=== PATIENT | male | born 1965 | race Caucasian/White ===

== ENCOUNTER 2017-03-29 12:42 | Emergency (ER) | payer BC ==
[~2017-03-29] VITALS: Ht 172.7 cm; Wt 102.0 kg
[~2017-03-29 12:42] MED LIST: CETI1SYR4 PO; FLUT16SP12 NS; PRED-214 PO; SULF1TAB38 PO
[2017-03-29 12:45] VITALS: Ht 172.7 cm; Wt 102.0 kg
--- OUTSIDE RECORDS SUMMARY | 2017-03-29 12:47 | XMS REPORT | Referral Summary ---
Author Author [facility], [facility] Organization [facility], [facility] Address Unknown Phone Unavailable Care Team Providers Care Associate Artistic Director Name Role Phone Leonie Del Rosario Primary Care Physician [phone] Encounter VC Date(s): 06/21/16 - 06/21/16 [facility], [address] [place], [place] [address] Discharge Diagnosis: DEACON on CPAP Discharge Disposition: 01-Home or Self Care Attending Physician: Erik Bahena MD Admitting Physician: Erik Bahena MD Vital Signs Most recent to 1 oldest [Reference Range]: Peripheral Pulse 68 bpm Rate [60-100 bpm] (06/21/16 2:34 PM) Blood Pressure 140/80 mmHg [90-140/60-90 mmHg] (06/21/16 2:34 PM) SpO2 94 % (06/21/16 2:34 PM) Problem List Condition Effective Dates Status Health Status Informant Complete tear of Active right rotator cuff(Confirmed) Primary Active osteoarthritis of right shoulder(Confirmed) Obesity(Confirmed) Active patient Obstructive sleep Active apnea, adult(Confirmed) Biceps tendon Active tear(Confirmed) Allergies, Adverse Reactions, Alerts No Known Medication Allergies Medications acyclovir 1 tablet, Oral, BID, 0 Refill(s) Start Date: 12/05/15 Status: Ordered Aspirin Low Dose 81 mg, Oral, Daily, 0 Refill(s) Start Date: 02/23/16 Status: Ordered Flonase 50 mcg/inh nasal spray 1 sprays, Nasal, Daily, # 16 g, 0 Refill(s) Start Date: 12/16/14 Status: Ordered Prevacid 15 mg, Oral, Daily, 0 Refill(s) Start Date: 02/23/16 Status: Ordered ZyrTEC 5 mg, Oral, Daily, 0 Refill(s) Start Date: 02/23/16 Status: Ordered Results No data available for this section Immunizations No data available for this section Procedures Procedure Date Related Diagnosis Body Site Catheterization Left Heart with Coronary 02/23/16 Angiography (Right, Wrist)1 lt shoulder surgery Surgery2 Tonsillectomy and adenoidectomy Vasectomy 1auto-populated from documented surgical case 2Left shoulder Social History Social History Type Response Smoking Status Former smoker; Type: Cigarettes; Tobacco use per day: More than 1 pack; Number of years: 15 Assessment and Plan Extracted from: Title: Ambulatory Patient Education Author: Erik Bahena MD Date: 06/21/16 ENT Sleep Apnea Sleep apnea is a sleep disorder characterized by abnormal pauses in breathing while you sleep. When your breathing pauses, the level of oxygen in your blood decreases. This causes you to move out of deep sleep and into light sleep. As a result, your quality of sleep is poor, and the system that carries your blood throughout your body (cardiovascular system) experiences stress. If sleep apnea remains untreated, the following conditions can develop: High blood pressure (hypertension). Coronary artery disease. Inability to achieve or maintain an erection (impotence). Impairment of your thought process (cognitive dysfunction). There are three types of sleep apnea: 1.Obstructive sleep apneaPauses in breathing during sleep because of a blocked airway. 2.Central sleep apneaPauses in breathing during sleep because the area of the brain that controls your breathing does not send the correct signals to the muscles that control breathing. 3. Mixed sleep apneaA combination of both obstructive and central sleep apnea. RISK FACTORS The following risk factors can increase your risk of developing sleep apnea: Being overweight. Smoking. Having narrow passages in your nose and throat. Being of older age. Being male. Alcohol use. Sedative and tranquilizer use. Ethnicity. Among individuals younger than 35 years, Americans are at increased risk of sleep apnea. SYMPTOMS Difficulty staying asleep. Daytime sleepiness and fatigue. Loss of energy. Irritability. Loud, heavy snoring. Morning headaches. Trouble concentrating. Forgetfulness. Decreased interest in sex. Unexplained sleepiness. DIAGNOSIS In order to diagnose sleep apnea, your caregiver will perform a physical examination. A sleep study done in the comfort of your own home may be appropriate if you are otherwise healthy. Your caregiver may also recommend that you spend the night in a sleep lab. In the sleep lab, several monitors record information about your heart, lungs, and brain while you sleep. Your leg and arm movements and blood oxygen level are also recorded. TREATMENT The following actions may help to resolve mild sleep apnea: Sleeping on your side. Using a decongestant if you have nasal congestion. Avoiding the use of depressants, including alcohol, sedatives, and narcotics. Losing weight and modifying your diet if you are overweight. There also are devices and treatments to help open your airway: Oral appliances. These are custom-made mouthpieces that shift your lower jaw forward and slightly open your bite. This opens your airway. Devices that create positive airway pressure. This positive pressure "splints" your airway open to help you breathe better during sleep. The following devices create positive airway pressure: Continuous positive airway pressure (CPAP) device. The CPAP device creates a continuous level of air pressure with an air pump. The air is delivered to your airway through a mask while you sleep. This continuous pressure keeps your airway open. Nasal expiratory positive airway pressure (EPAP) device. The EPAP device creates positive air pressure as you exhale. The device consists of single-use valves, which are inserted into each nostril and held in place by adhesive. The valves create very little resistance when you inhale but create much more resistance when you exhale. That increased resistance creates the positive airway pressure. This positive pressure while you exhale keeps your airway open , making it easier to breath when you inhale again. Bilevel positive airway pressure (BPAP) device. The BPAP device is used mainly in patients with central sleep apnea. This device is similar to the CPAP device because it also uses an air pump to deliver continuous air pressure through a mask. However, with the BPAP machine, the pressure is set at two different levels. The pressure when you exhale is lower than the pressure when you inhale. Surgery. Typically, surgery is only done if you cannot comply with less invasive treatments or if the less invasive treatments do not improve your condition. Surgery involves removing excess tissue in your airway to create a wider passage way. This information is not intended to replace advice given to you by your health care provider. Make sure you discuss any questions you have with your health care provider. Document Released: 10/24/2003 Document Revised: 11/24/2015 Document Reviewed: [facility] Patient Information 2016 [facility], [facility]. Sleep Apnea Sleep apnea is a sleep disorder characterized by abnormal pauses in breathing while you sleep. When your breathing pauses, the level of oxygen in your blood decreases. This causes you to move out of deep sleep and into light sleep. As a result, your quality of sleep is poor, and the system that carries your blood throughout your body (cardiovascular system) experiences stress. If sleep apnea remains untreated, the following conditions can develop: High blood pressure (hypertension). Coronary artery disease. Inability to achieve or maintain an erection (impotence). Impairment of your thought process (cognitive dysfunction). There are three types of sleep apnea: 1.Obstructive sleep apneaPauses in breathing during sleep because of a blocked airway. 2.Central sleep apneaPauses in breathing during sleep because the area of the brain that controls your breathing does not send the correct signals to the muscles that control breathing. 3. Mixed sleep apneaA combination of both obstructive and central sleep apnea. RISK FACTORS The following risk factors can increase your risk of developing sleep apnea: Being overweight. Smoking. Having narrow passages in your nose and throat. Being of older age. Being male. Alcohol use. Sedative and tranquilizer use. Ethnicity. Among individuals younger than 35 years, Americans are at increased risk of sleep apnea. SYMPTOMS Difficulty staying asleep. Daytime sleepiness and fatigue. Loss of energy. Irritability. Loud, heavy snoring. Morning headaches. Trouble concentrating. Forgetfulness. Decreased interest in sex. Unexplained sleepiness. DIAGNOSIS In order to diagnose sleep apnea, your caregiver will perform a physical examination. A sleep study done in the comfort of your own home may be appropriate if you are otherwise healthy. Your caregiver may also recommend that you spend the night in a sleep lab. In the sleep lab, several monitors record information about your heart, lungs, and brain while you sleep. Your leg and arm movements and blood oxygen level are also recorded. TREATMENT The following actions may help to resolve mild sleep apnea: Sleeping on your side. Using a decongestant if you have nasal congestion. Avoiding the use of depressants, including alcohol, sedatives, and narcotics. Losing weight and modifying your diet if you are overweight. There also are devices and treatments to help open your airway: Oral appliances. These are custom-made mouthpieces that shift your lower jaw forward and slightly open your bite. This opens your airway. Devices that create positive airway pressure. This positive pressure "splints" your airway open to help you breathe better during sleep. The following devices create positive airway pressure: Continuous positive airway pressure (CPAP) device. The CPAP device creates a continuous level of air pressure with an air pump. The air is delivered to your airway through a mask while you sleep. This continuous pressure keeps your airway open. Nasal expiratory positive airway pressure (EPAP) device. The EPAP device creates positive air pressure as you exhale. The device consists of single-use valves, which are inserted into each nostril and held in place by adhesive. The valves create very little resistance when you inhale but create much more resistance when you exhale. That increased resistance creates the positive airway pressure. This positive pressure while you exhale keeps your airway open , making it easier to breath when you inhale again. Bilevel positive airway pressure (BPAP) device. The BPAP device is used mainly in patients with central sleep apnea. This device is similar to the CPAP device because it also uses an air pump to deliver continuous air pressure through a mask. However, with the BPAP machine, the pressure is set at two different levels. The pressure when you exhale is lower than the pressure when you inhale. Surgery. Typically, surgery is only done if you cannot comply with less invasive treatments or if the less invasive treatments do not improve your condition. Surgery involves removing excess tissue in your airway to create a wider passage way. This information is not intended to replace advice given to you by your health care provider. Make sure you discuss any questions you have with your health care provider. Document Released: 10/24/2003 Document Revised: 11/24/2015 Document Reviewed: [facility] Patient Information 2016 [place], [facility]. No follow up information was provided.
--- OUTSIDE RECORDS SUMMARY | 2017-03-29 12:47 | XMS REPORT | Referral Summary ---
Author Author [facility], [facility] Organization [facility] Address Unknown Phone Unavailable Care Team Providers Care Warehouse Order Picker Name Role Phone Leonie Del Rosario Primary Care Physician [phone] Encounter VC Date(s): 01/05/16 - 01/05/16 [facility], [facility] [address], [place] [address] Discharge Diagnosis: Obstructive sleep apnea, adult Discharge Disposition: 01-Home or Self Care Attending Physician: Erik Bahena MD Admitting Physician: Erik Bahena MD Vital Signs Most recent to 1 oldest [Reference Range]: Peripheral Pulse 70 bpm Rate [60-100 bpm] (01/05/16 10:55 AM) Blood Pressure 150/84 mmHg [90-140/60-90 mmHg] *HI* (01/05/16 10:55 AM) SpO2 96 % (01/05/16 10:55 AM) Problem List Condition Effective Dates Status Health Status Informant Complete tear of Active right rotator cuff(Confirmed) Primary Active osteoarthritis of right shoulder(Confirmed) Obesity(Confirmed) Active patient Obstructive sleep Active apnea, adult(Confirmed) Biceps tendon Active tear(Confirmed) Allergies, Adverse Reactions, Alerts No Known Medication Allergies Medications acyclovir 0 Refill(s) Start Date: 12/05/15 Status: Ordered Flonase 50 mcg/inh nasal spray 1 sprays, Nasal, Daily, # 16 g, 0 Refill(s) Start Date: 12/16/14 Status: Ordered Results No data available for this section Immunizations No data available for this section Procedures Procedure Date Related Diagnosis Body Site Surgery1 1Left shoulder Social History Social History Type Response Smoking Status Former smoker; Type: Cigarettes; Tobacco use per day: More than 1 pack; Number of years: 15 Assessment and Plan No data available for this section
--- OUTSIDE RECORDS SUMMARY | 2017-03-29 12:47 | XMS REPORT | Referral Summary ---
Author Author [facility], [facility] Organization [facility], [facility] Address Unknown Phone Unavailable Care Team Providers Care Rim Roller Setter Name Role Phone Leonie Del Rosario Primary Care Physician [phone] Encounter VC Date(s): 12/14/15 - 12/14/15 [facility], [address], [place] [address] Discharge Disposition: 01-Home or Self Care Attending Physician: Anthony Snowden MD Admitting Physician: Anthony Snowden MD Referring Physician: Anthony Snowden MD Vital Signs No data available for this section Problem List Condition Effective Dates Status Health [...] 15 Assessment and Plan Extracted from: Title: CPAP SUPPLY Author: Shaila Johnson LIABILITY ANALYST Date: 12/13/15 cindy Tovar
--- OUTSIDE RECORDS SUMMARY | 2017-03-29 12:47 | XMS REPORT | Referral Summary ---
Author Author [facility], [facility] Organization [facility], [facility] Address Unknown Phone Unavailable Care Team Providers Care Ball Assembler Name Role Phone Leonie Del Rosario Primary Care Physician [phone] Encounter Date(s): 02/06/16 - 02/06/16 [facility], [facility] [address] [place] [address]- [place] Discharge Disposition: 01-Home or Self Care Attending Physician: Erik Bahena MD Admitting Physician: Erik Bahena MD Vital Signs No data available for [...] Assessment and Plan Extracted from: Title: CPAP MASK Author: Shaila Johnson ROOFING LABORER Date: 02/06/16 Mr Asencio returned the loan analia view mask on 02/05/16.
--- OUTSIDE RECORDS SUMMARY | 2017-03-29 12:47 | XMS REPORT | Referral Summary ---
Author Organization Unknown Address Unknown Phone Unavailable Care Team Providers Care Wrapper Opener Name Role Phone Leonie Del Rosario Primary Care Physician [phone] Encounter VC Date(s): 01/03/15 - 01/03/15 [facility], [facility] [address] [facility] [address] [place], [place] [address] Discharge Disposition: Home or Self Care Attending Physician: Drew Del Rosario MD Admitting Physician: Drew Del Rosario MD Vital Signs No data available for this section Problem List Condition Effective Dates Status Health Status Informant Obesity(Confirmed) Active patient Obstructive sleep Active apnea, adult(Confirmed) Allergies, Adverse Reactions, Alerts No Known Medication Allergies Medications Flonase 50 mcg/inh nasal spray 1 sprays, Nasal, Daily, # 16 g, 0 Refill(s) Start Date: 12/16/14 Status: Ordered Results No data available for this section Immunizations No data available for this section Procedures No data available for this section Social History Social History Type Response Smoking Status Former smoker; Type: Cigarettes; Tobacco use per day: More than 1 pack; Number of years: 15 Assessment and Plan Extracted from: Title: CPAP simplus:Scindy, Author: Shaila Johnson WALL INSULATION SPRAYER Date: [employer]
--- OUTSIDE RECORDS SUMMARY | 2017-03-29 12:47 | XMS REPORT | Referral Summary ---
Author Organization Unknown Address Unknown Phone Unavailable Care Team Providers Care Fish Hatchery Manager Name Role Phone Leonie Del Rosario Primary Care Physician [phone] Encounter VC Date(s): 12/16/14 - 12/16/14 [facility], [facility] [address], [place] [address] Discharge Disposition: Home or Self Care Attending Physician: Drew Del Rosario MD Vital Signs [...] Assessment and Plan Extracted from: Title: CPAP adjust pressure to 8cm Author: Shaila Johnson PURCHASING AND FISCAL CLERK Date: 12/16/[address] Snowden pressure change
--- OUTSIDE RECORDS SUMMARY | 2017-03-29 12:47 | XMS REPORT | Referral Summary ---
Author Organization Unknown Address Unknown Phone Unavailable Care Team Providers Care Post Anesthesia Nurse Name Role Phone Leonie Del Rosario Primary Care Physician [phone] Encounter VC Date(s): 12/16/14 - 12/16/14 [facility], [facility] [address] [place], [place] [address] [[email or web address]] Discharge Diagnosis: Obstructive sleep apnea, adult Discharge Disposition: Home or Self Care Attending Physician: Anthony Snowden MD Admitting Physician: Anthony Snowden MD Vital Signs Most recent to 1 oldest [Reference Range]: Peripheral Pulse 71 bpm Rate [60-100 bpm] (12/16/14 2:20 PM) Blood Pressure 124/60 mmHg [90-140/60-90 mmHg] (12/16/14 2:20 PM) Most recent to 1 oldest [Reference Range]: SpO2 94 % (12/16/14 2:20 PM) Problem List Condition Effective Dates Status [...] 15 Assessment and Plan Extracted from: Title: Office Visit Note Author: Anthony Snowden MD Date: 12/16/14 Assessment/Plan Obstructive sleep apnea, adult Assessment: The patient is complying with treatment and benefiting. A little higher pressure may be better. Plan: Increase pressure to 8 cm. Return on an as-needed basis. Again we are looking into the billing issues for him. He was given a prescription so he can get supplies elsewhere if he wishes.
--- OUTSIDE RECORDS SUMMARY | 2017-03-29 12:47 | XMS REPORT | Referral Summary ---
Author Author [facility], [facility] Organization [facility], [facility] Address Unknown Phone Unavailable Care Team Providers Care Taxicab Driver Name Role Phone Leonie Del Rosario Primary Care Physician [phone] Encounter VC Date(s): 07/19/16 - 07/19/16 [facility], [facility] [address], [place] [address] Discharge Disposition: 01-Home or Self [...]
--- OUTSIDE RECORDS SUMMARY | 2017-03-29 12:47 | XMS REPORT | Referral Summary ---
Author Author [facility] Organization [facility] Address Unknown Phone Unavailable Care Team Providers Care Car Mechanic Name Role Phone Leonie Del Rosario Primary Care Physician [phone] Encounter VC Date(s): 12/05/15 - 12/05/15 [facility] [address] [place], [place] [address] Discharge Disposition: 01-Home or Self Care Attending Physician: Erik Feliz MD Admitting Physician: Erik Feliz MD Referring Physician: Drew Del Rosario MD Vital Signs Most recent to 1 oldest [Reference Range]: Respiratory Rate 18 br/min [14-20 br/min] (12/05/15 4:00 PM) Problem List Condition Effective Dates Status [...]
--- OUTSIDE RECORDS SUMMARY | 2017-03-29 12:47 | XMS REPORT | Referral Summary ---
Author Author [facility], [facility] Organization [facility], [facility] Address Unknown Phone Unavailable Care Team Providers Care Director Of Clinical Applications Name Role Phone Leonie Del Rosario Primary Care Physician [phone] Encounter VC Date(s): 09/10/16 - 09/10/16 [facility] [place], [address] [place], [place] [address] Discharge Disposition: 01-Home or Self Care Attending Physician: Erik Bahena MD Vital Signs No [...]
--- OUTSIDE RECORDS SUMMARY | 2017-03-29 12:47 | XMS REPORT | Referral Summary ---
Author Organization Unknown Address Unknown Phone Unavailable Care Team Providers Care Manufacturing Software Engineer Name Role Phone Leonie Del Rosario Primary Care Physician [phone] Encounter VC [facility] [id number] Date(s): 03/03/15 - 03/03/15 [facility], [facility] [address] [facility] [address] [place], [place] [address] Discharge Disposition: Home or Self Care [...]
--- OUTSIDE RECORDS SUMMARY | 2017-03-29 12:47 | XMS REPORT | Referral Summary ---
Author Author [facility], [facility] Organization [facility], [facility] Address Unknown Phone Unavailable Care Team Providers Care Conveyor Weigher Operator Name Role Phone Leonie Del Rosario Primary Care Physician [phone] Encounter VC Date(s): 06/21/16 - 06/21/16 [facility], [facility] [address], [place] [address] Discharge Disposition: 01-Home or Self [...] Assessment and Plan Extracted from: Title: CPAP SUPPLY/ PRESSURE CHANGE Author: Shaila Johnson COUNTER CLERK [employer] Date : 06/21/16 S10 filters Pressure changed to 11cm per Dr Bahena
--- OUTSIDE RECORDS SUMMARY | 2017-03-29 12:47 | XMS REPORT | Referral Summary ---
Author Author [facility], [facility] Organization [facility] Address Unknown Phone Unavailable Care Team Providers Care Assistant Executive Housekeeper Name Role Phone Leonie Del Rosario Primary Care Physician [phone] Encounter VC Date(s): 09/18/15 - 09/18/15 [facility], [facility] [address], [place] [address] Discharge Disposition: 01-Home or Self Care Attending Physician: Anthony Snowden MD Referring Physician: Anthony [...] Assessment and Plan Extracted from: Title: CPAP SUPPLIES Author: [place]ia Bolivar SCREW MACHINE HAND Date: 09/18/15 small simplus seal, s9 filters.
--- OUTSIDE RECORDS SUMMARY | 2017-03-29 12:47 | XMS REPORT | Continuity of Care Document ---
Author Author [facility] Organization [facility] Address Unknown Phone Unavailable Allergies Active Description Code Type Severity Reaction Onset Reported/Identified Relationship to Patient Clinical Status Yes No Known Medication Allergies NKMA N/A N/A 09/01/2014 Yes No Known Medication Allergies NKMA N/A N/A 09/01/2014 Medications Medication Packaging Start Date Stop Date Route Dosage Sig fluticasone nasal(Flonase 50 mcg/inh nasal spray) 1 sprays 12/16/2014 Nasal 1 sprays, Nasal, Daily, 16 g acyclovir(acyclovir) 12/05/2015 Oral 1 tablet, Oral, BID, 0 Refill(s) triamcinolone(triamcinolone acetonide 40 mg/mL injectable suspension) 201512/09/2015 IntraARTICULAR 2 mL 2 mL, IntraARTICULAR, Once Sodium Chloride 0.9%(sodium chloride 0.9% 1,000 mL) 1,000 mL 02/23/2016 02/23/2016 IV 75 mL/hr, IV methylPREDNISolone(Solu-MEDROL) 2 mL 02/23/2016 02/23/2016 IV Push 125 mg 125 mg=2 mL, IV Push, Once, PRN: Other (See Comment) diphenhydrAMINE(Benadryl) 1 mL 02/23/2016 02/23/2016 IV Push 50 mg 50 mg=1 mL, IV Push, Once, PRN: Other (See Comment) cetirizine(ZyrTEC) 02/23/2016 Oral 5 mg 5 mg, Oral, Daily, 0 Refill(s) lansoprazole(Prevacid) 02/23/2016 Oral 15 mg 15 mg, Oral, Daily, 0 Refill(s) Problems Date Dx Coded Attending Type Code Diagnosis Diagnosed By 02/28/2016 Tahir Muhammad MD 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 Visit Date/Time Discharge Status Pt. Type Provider Facility Loc./Unit Complaint [id number] 09/10/2016 15:36:00 2015 23:59:00 DIS Outpatient Erik Bahena [facility] Sleep W supplies [id number] 09/10/2016 15:30:00 2015 23:59:00 DIS Outpatient [facility] Sleep W CPAP SUPPLIES [id number] 09/10/2016 14:49:00 2015 23:59:00 DIS Outpatient Erik Bahena [facility] Sleep W 6 week claudia cpap [id number] 07/19/2016 09:04:00 2015 23:59:00 DIS Outpatient Erik Bahena [facility] Sleep W [address] Bahena for results [id number] 06/21/2016 15:04:00 2015 23:59:00 DIS Outpatient Erik Bahena [facility] Sleep W S10 filters/ pressure change to 11cm pr DrJosef [id number] 06/21/2016 14:26:00 2015 23:59:00 DIS Outpatient Erik Bahena [facility] Sleep W HAVING TROUBLE SLEEPING HAS A CPAP [id number] 02/06/2016 08:04:00 2015 23:59:00 DIS Outpatient Erik Bahena [facility] Sleep W return analia view mask [id number] 01/05/2016 12:08:00 2015 23:59:00 DIS Outpatient Erik Bahena [facility] Sleep W mask help [id number] 01/05/2016 10:44:00 2015 23:59:00 DIS Outpatient Erik Bahena [facility] Sleep W PAST PT CLAUDIA CPAP [id number] 12/14/2015 10:37:00 2015 23:59:00 DIS Outpatient Anthony Snowden [facility] Sleep W small simplus cushion/ headgear [id number] 12/13/2015 14:39:00 2015 23:59:00 DIS Outpatient [facility] Sleep W CPAP [id number] 09/18/2015 14:08:00 2014 23:59:00 DIS Outpatient [facility] Sleep W CPAP SUPPLIES [id number] 09/18/2015 09:34:00 2014 23:59:00 DIS Outpatient Anthony Snowden [facility] Sleep W small simplus cushion / s9 filters [id number] 01/06/2015 09:42:00 2014 23:59:00 DIS Outpatient [facility] Sleep W CPAP SUPPLIES [id number] 12/16/2014 14:53:00 2014 23:59:00 DIS Outpatient Drew Del Rosario [facility] Sleep W adjust pressure to 8cm per Dr Snowden [id number] 12/16/2014 14:11:00 2014 23:59:00 DIS Outpatient Anthony Snowden [facility] Sleep W 1 mo ck [id number] 10/06/2014 11:13:00 2013 23:59:00 DIS Outpatient Drew Del Rosario [facility] Sleep new cpap @7 [id number] 10/06/2014 09:56:00 2013 23:59:00 DIS Outpatient Anthony Snowden [facility] Sleep PSG [place] 09/14 [id number] 06/21/2016 09:26:00 ACT Outpatient [facility] Sleep W CPAP SUPPLIES [id number] 12/05/2015 15:27:00 ACT Outpatient Erik Feliz [facility] FC Ortho NPT R BICEP/DOI 12.10.15 [id number] 03/03/2015 14:42:00 Document Registration [id number] 03/03/2015 13:00:00 Document Registration [id number] 01/03/2015 13:13:00 Document Registration [id number] 12/27/2014 12:36:00 Document Registration
--- OUTSIDE RECORDS SUMMARY | 2017-03-29 12:47 | XMS REPORT | Referral Summary ---
Author Author [facility] Organization [facility] Address Unknown Phone Unavailable Care Team Providers Care Communications Technologist Name Role Phone Leonie Del Rosario Primary Care Physician [phone] Encounter VC Date(s): 02/23/16 - 02/23/16 [facility] [address] [place], [place] [address] Discharge Disposition: 01-Home or Self Care Attending Physician: Tahir Muhammad MD Admitting Physician: Tahir Muhammad MD Vital Signs Most recent to 1 oldest [Reference Range]: Temperature Temporal 36.7 degC Artery [36.3-37.8 (02/23/16 2:15 PM) degC] Peripheral Pulse 70 bpm Rate [60-100 bpm] (02/23/16 11:27 AM) Heart Rate Monitored 73 bpm [60-100 bpm] (02/23/16 2:45 PM) Respiratory Rate 17 br/min [14-20 br/min] (02/23/16 2:45 PM) Blood Pressure 132/75 mmHg [90-140/60-90 mmHg] (02/23/16 2:45 PM) Mean Arterial 93 mmHg Pressure, Cuff (02/23/16 2:45 PM) SpO2 94 % (02/23/16 3:00 PM) Problem List Condition Effective Dates Status [...] Refill(s) Start Date: 02/23/16 Status: Ordered Results Hematology Most recent to 1 oldest [Reference Range]: WBC [4.8-10.8 7.6 10*3/uL 10*3/uL] (02/23/16 11:12 AM) RBC [4.60-6.20] 6.00 (02/23/16 11:12 AM) Hgb [14.0-18.0 16.2 gm/dL gm/dL] (02/23/16 11:12 AM) Hct [42.0-52.0 %] 49.0 % (02/23/16 11:12 AM) MCV [82.0-99.0 fL] 81.7 fL *LOW* (02/23/16 11:12 AM) MCH [27.0-32.0 pg] 27.0 pg (02/23/16 11:12 AM) MCHC [32.0-36.0 33.1 gm/dL gm/dL] (02/23/16 11:12 AM) RDW [11.5-14.5 %] 15.2 % *HI* (02/23/16 11:12 AM) Platelet [150-400 243 10*3/uL 10*3/uL] (02/23/16 11:12 AM) MPV [9.4-12.3 fL] 11.5 fL (02/23/16 11:12 AM) Coagulation Most recent to 1 oldest [Reference Range]: INR [0.9-1.2] 1.1 (02/23/16 11:12 AM) Chemistry Most recent to 1 oldest [Reference Range]: Sodium Lvl [136-144 140 mEq/L mEq/L] (02/23/16 11:12 AM) Potassium Lvl 3.9 mEq/L [3.6-5.1 mEq/L] (02/23/16 11:12 AM) Chloride [99-109 107 mEq/L mEq/L] (02/23/16 11:12 AM) CO2 [22-32 mEq/L] 25 mEq/L (02/23/16 11:12 AM) AGAP [3-20] 8 (02/23/16 11:12 AM) BUN [4-20 mg/dL] 18 mg/dL (02/23/16 11:12 AM) Glucose Lvl [70-100 95 mg/dL mg/dL] (02/23/16 11:12 AM) Creatinine Lvl 1.14 mg/dL [0.64-1.27 mg/dL] (02/23/16 11:12 AM) eGFR [>60] >60 1 (02/23/16 11:12 AM) Calcium Lvl 9.2 mg/dL [8.6-10.0 mg/dL] (02/23/16 11:12 AM) 1Result Comment: Multiply eGFR results by 1.21 for race. Immunizations No data available for this section [...]
--- OUTSIDE RECORDS SUMMARY | 2017-03-29 12:47 | XMS REPORT | Referral Summary ---
Author Author [facility] Organization [facility] Address Unknown Phone Unavailable Care Team Providers Care Clerk Entry Level Name Role Phone Leonie Del Rosario Primary Care Physician [phone] Encounter Date(s): 09/10/16 - 09/10/16 [facility] [address] [place], [place] [address] Discharge Diagnosis: DEACON on CPAP Discharge Disposition: 01-Home or Self Care Attending Physician: Erik Bahena MD Admitting Physician: Erik Bahena MD Vital Signs Most recent to 1 oldest [Reference Range]: Peripheral Pulse 76 bpm Rate [60-100 bpm] (09/10/16 3:00 PM) Blood Pressure 138/78 mmHg [90-140/60-90 mmHg] (09/10/16 3:00 PM) SpO2 95 % (09/10/16 3:00 PM) Problem List Condition Effective Dates [...] Extracted from: Title: Office Visit Note Author: Erik Bahena MD Date: 09/10/16 Assessment/Plan 1.DEACON on CPAP Ordered: Office Visit Level 3 Est 89233 This 50-year-old gentlemanhas severe obstructive sleep apnea based upon diagnostic PSG in 2013. He has overcome his tolerability issues, meeting compliance markers and witha respectable resultssymptom control andAHI reduction. His AHI is not under ideal control, however, this gentleman has had such difficulty getting to this point,it would likelybe counterproductive to shaquille the AHIwith higher CPAPpressures, potentially threatening histolerabilityof the treatment in general. Further pressure increases can beconsidered in the future, but not at thispoint in his long- term care. He expressedparticular understanding and agreement with this point. Use of CPAP/BiPAP is encouraged for all sleep. The patient is encouraged to replace CPAP supplies regularly and keep a sanitary system. An annual follow-up is recommended unless interval issues arise. The patient and any accompanying family expressed understanding and agreement with this plan after having had adequate time to ask and have questions answered.
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
[2017-03-29] MEDS ORDERED: CETI-115 PO (13:10)
[2017-03-29] MEDS ORDERED: ACYC400T PO (13:10)
[2017-03-29] MEDS ORDERED: FLUT16SP EA NOSTRIL (13:10)
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
--- NOTE | 2017-03-29 13:45 | NUR ---
TO CT NURSE ACCOMPANIES PT TO CT
--- NOTE | 2017-03-29 14:25 | NUR ---
JOAO CISSE IN WITH PT C COLLAR REMOVED BY JOAO CISSE
[2017-03-29] MEDS ORDERED: IBUPROFEN 800 MG TABLET PO ONE (14:30)
[2017-03-29 15:15] VITALS: BP 178/84; PULSE 69; RESP 18; TEMP 98.3; O2SAT 95
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
== END 2017-03-29 15:15 | disposition home or self-care (01) ==
LOC: ED 12:42
DX: S42.021A Displaced fracture of shaft of right clavicle, initial encounter for closed fracture (principal); S06.0X0A Concussion without loss of consciousness, initial encounter; R07.81 Pleurodynia; V86.59XA Driver of other special all-terrain or other off-road motor vehicle injured in nontraffic accident, initial encounter; Y93.89 Activity, other specified; Y92.009 Unspecified place in unspecified non-institutional (private) residence as the place of occurrence of the external cause; Y99.8 Other external cause status

== ENCOUNTER 2017-03-31 08:47 | Day surgery (SDC) | payer BC ==
[~2017-03-31] VITALS: Ht 170.2 cm; Wt 103.2 kg
[2017-03-31] VITALS (25 sets, daily range): BP systolic 127–189; BP diastolic 61–97; PULSE 63–98; RESP 10–21; TEMP 98.4–98.9; O2SAT 91–98; Ht 170.2 cm; Wt 103.2 kg
[~2017-03-31 08:47] MED LIST changes: +ACYC400T PO; +CETI-115 PO; -CETI1SYR4 PO; +FLUT16SP EA NOSTRIL; -FLUT16SP12 NS; +NOZIN NASAL SWAB NS PRN; -PRED-214 PO; -SULF1TAB38 PO; +VANCOMYCIN 1,000 MG in NORMAL SALINE 250 ML IV ONE
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
--- OUTSIDE RECORDS SUMMARY | 2017-03-31 08:52 | XMS REPORT | Continuity of Care Document ---
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 Visit Date/Time Discharge Status Pt. Type Provider Facility Loc./Unit Complaint [id number] 09/10/2016 15:36:00 2015 23:59:00 DIS Outpatient Erik Bahena [facility] Sleep W supplies [id number] 09/10/2016 15:30:00 2015 23:59:00 DIS Outpatient [facility] Sleep W CPAP SUPPLIES [id number] 09/10/2016 14:49:00 2015 23:59:00 DIS Outpatient Erik Bahena [facility] Sleep W 6 week claudia cpap [id number] 07/19/2016 09:04:00 2015 23:59:00 DIS Outpatient Erik Bahena [facility] Sleep W [address] Bahena for results [id number] 06/21/2016 15:04:00 2015 23:59:00 DIS Outpatient Erik Bahena [facility] Sleep W S10 filters/ pressure change to 11cm pr DrJosef [id number] 06/21/2016 14:26:00 2015 23:59:00 DIS Outpatient Erik Bahena [facility] Sleep W HAVING TROUBLE SLEEPING HAS A CPAP [id number] 02/06/2016 08:04:00 2015 23:59:00 DIS Outpatient Erik Bahena [facility] Sleep W return analia view mask [id number] 01/05/2016 12:08:00 2015 23:59:00 DIS Outpatient Erik Bahena [facility] Sleep W mask help [id number] 01/05/2016 10:44:00 2015 23:59:00 DIS Outpatient Erik Bahena [facility] Sleep W PAST PT CLAUDIA CPAP [id number] 12/14/2015 10:37:00 2015 23:59:00 DIS Outpatient Anthony Snowden [facility] Sleep W small simplus cushion/ headgear [id number] 12/13/2015 14:39:00 2015 23:59:00 DIS Outpatient [facility] Sleep W CPAP [id number] 09/18/2015 14:08:00 2014 23:59:00 DIS Outpatient [facility] Sleep W CPAP SUPPLIES [id number] 09/18/2015 09:34:00 2014 23:59:00 DIS Outpatient Anthony Snowden [facility] Sleep W small simplus cushion / s9 filters [id number] 01/06/2015 09:42:00 2014 23:59:00 DIS Outpatient [facility] Sleep W CPAP SUPPLIES [id number] 12/16/2014 14:53:00 2014 23:59:00 DIS Outpatient Drew Del Rosario [facility] Sleep W adjust pressure to 8cm per Dr Snowden [id number] 12/16/2014 14:11:00 2014 23:59:00 DIS Outpatient Anthony Snowden [facility] Sleep W 1 mo ck [id number] 10/06/2014 11:13:00 2013 23:59:00 DIS Outpatient Drew Del Rosario [facility] Sleep new cpap @7 [id number] 10/06/2014 09:56:00 2013 23:59:00 DIS Outpatient Anthony Snowden [facility] Sleep PSG FONTANA 09/14 [id number] 06/21/2016 09:26:00 ACT Outpatient [facility] Sleep W CPAP SUPPLIES [id number] 12/05/2015 15:27:00 ACT Outpatient Erik Feliz [facility] FC Ortho NPT R BICEP/DOI 12.10.15 [id number] 03/03/2015 14:42:00 Document Registration [id number] 03/03/2015 13:00:00 Document Registration [id number] 01/03/2015 13:13:00 Document Registration [id number] 12/27/2014 12:36:00 Document Registration
[2017-03-31] MEDS ORDERED: ASPI-557 PO (09:10)
[2017-03-31 09:58] LABS: BASOPHILS % (AUTO) 0.3 % (0-2); EOSINOPHILS # (AUTO) 0.2 T/MM3 (0-0.5); EOSINOPHILS % (AUTO) 2.5 % (0-4); HCT - HEMATOCRIT 47.4 % (41-53); HGB - HEMOGLOBIN 15.7 GM/DL (13.5-17.5); IMMATURE GRANULOCYTE # (AUTO) 0.06 T/MM3 (0.00-0.03); IMMATURE GRANULOCYTE % (AUTO) 0.7 % (0.0-0.5); LYMPHOCYTES # (AUTO) 1.8 T/MM3 (1-4.8); LYMPHOCYTES % (AUTO) 20.7 % (23-45); MEAN CORPUSCULAR HGB 28.5 UUG (26-34); MEAN CORPUSCULAR HGB CONC(MCHC 33.1 GM/DL (31-37); MEAN PLATELET VOLUME 11.7 UM3 (9.4-12.4); MONOCYTES # (AUTO) 0.8 T/MM3 (0-0.8); MONOCYTES % (AUTO) 8.5 % (0-9.0); NEUTROPHILS % (AUTO) 67.3 % (33-66); RED BLOOD COUNT 5.51 M/MM3 (4.50-5.90); WBC - WHITE BLOOD COUNT 8.8 T/MM3 (4.5-11.0)
[2017-03-31 10:07] LABS: ALBUMIN/GLOBULIN RATIO 1.6 RATIO (1.1-2.2); ALKALINE PHOSPHATASE 97 U/L (38-126); ALT (SGPT) 86 U/L (21-72); ANION GAP 12 MEQ/L (5-15); AST (SGOT) 64 U/L (17-59); BUN/CREATININE RATIO 18 RATIO (6-26); CHLORIDE 110 MEQ/L (98-107); CO2 - CARBON DIOXIDE 26 MEQ/L (22-30); CREATININE 1.1 MG/DL (0.8-1.5); GLOMERULAR FILTRATION RATE 71; GLUCOSE 93 MG/DL (75-110); POTASSIUM 4.4 MEQ/L (3.6-5); SODIUM 148 MEQ/L (134-144); TOTAL PROTEIN 6.5 G/DL (6.3-8.2)
[2017-03-31] MEDS ORDERED: NOZIN NASAL SWAB NS ONE (10:45)
[2017-03-31] MEDS ORDERED: PROPOFOL 500mg 50 ML IV ONE (12:41)
[2017-03-31] MEDS ORDERED: ROCURONIUM 50mg/5ml INJECTION IV ONE (12:42)
[2017-03-31] MEDS ORDERED: BUPIVACAINE 0.25% (2.5mg/ml) INJ 30ml SDV ONE (12:44)
[2017-03-31] MEDS ORDERED: MIDAZOLAM 2mg/2ml INJECTION IV ONE (13:15)
[2017-03-31] MEDS ORDERED: GLYCOPYRROLATE 0.4mg/2ml INJECTION ONE (14:41)
[2017-03-31] MEDS ORDERED: PHENYLEPHRINE 10mg/ml INJECTION ONE (14:52)
[2017-03-31] MEDS ORDERED: SALINE FLUSH 10ml SYRINGE ONE ×2 (14:52→15:14)
--- NOTE | 2017-03-31 15:01 | ANESPREOP ---
Anesthesia Record Date and Time DATE: 03/31/17 TIME: 1320 Pre-Op Diagnosis right clavicle fracture Proposed Surgical Procedure ORIF right clavicle NPO since: 2199 Allergies: Coded Allergies: No Known Drug Allergies (Verified Allergy, Unknown, 03/29/17) Ht/Wt/BMI Height: 5 ' 7.00 " Weight: 103.200 kg BMI: 35.6 kg/m2 Vital Signs Date Time Temp Pulse Resp B/P Pulse Ox O2 Delivery O2 Flow Rate FiO2 03/31/17 14:00 82 14 141/61 91 Room Air 03/31/17 09:10 98.5 Medications Inpatient Medications Current Medications Medications (Trade) Dose Ordered Sig/Bautista Start Time Stop Time Status Last Admin Dose Admin Lactated Ringer's (Lactated Ringers) 1,000 ml @ 50 mls/hr Q20H 04/01/17 07:01 03/31/17 10:00 50 MLS/HR Multi-Ingredient Antiseptic (Nozin Nasal Swab) 3 each PREOP PRN 03/31/17 07:15 03/31/17 10:39 DC Acyclovir (Acyclovir) 400 Mg Tablet, 400 MG PO BID, (Reported) Last Taken: on 03/30/171999 Aspirin (Aspir 81) 81 Mg Tablet.dr, 1 TAB PO DAILY, (Reported) Last Taken: on 03/29/17 Cetirizine HCl (Zyrtec) 10 Mg Tablet, 10 MG PO DAILY, (Reported) Last Taken: on 03/30/171999 Fluticasone Propionate (Fluticasone Prop 50 mcg /actuation Nasal [place]) 120 [place]/16 G [place], 1 SPRAY EA NOSTRIL DAILY, ( Reported) Last Taken: on 03/30/171999 Currently on Beta Tom: No Medical/Surgical History Anesthesia PMH: Reports: *Hypertension, Reflux, Sleep Apnea, Denies: *Diabetes , Anesthesia Reactions, Blood Transfusion Reac, Cancer, Glaucoma, Malignant Hyperthermia, Renal Disease, Thyroid Disease Smoking Status: Former smoker Substance Use Type: former substance user, opiates Alcohol Intake: none Past Surgical History Orthopedic Surgeries: Yes - RIGHT KNEE MENISCUS REPAIR/LEFT SHOULDER SCREWS Abdominal Surgeries: No Genitourinary Surgeries: No Cardiac Surgeries: Yes - HEART CATH COMPLETED LAST YEAR-NEGATIVE Endocrine Surgeries: No Reproductive Surgeries: No Neurological Surgeries: No Ear Surgeries: No Nose Surgeries: Yes Throat Surgeries: Yes - TONSILLS AND ADENOIDS REMOVED AT 6 YEARS OLD Other Surgeries: Yes - DEBRIDEMENT RIGHT FOREARM/MRSA Anesthesia Adverse Reactions: FOUND none Family Hx of Anesthesia Advers: none Hx of Motion Sickness: No Pertinent Findings Laboratory Tests 03/31/17 09:48 EKG Rhythm: Sinus Rhythm Physical Exam Respiratory: Lungs clear Cardiovascular: FOUND Regular rate, rhythm, FOUND No murmur Airway Assessment Mallampati Score: II TMD: 3 Fingerbreadths Neck Extension: Good Teeth: Chipped Teeth/Crowns Overall Assessment: No Airway Concerns ASA: 2 Plan Anesthesia Plan: LMA Peripheral Nerve Block: Interscalene Block - RT (and right superficial Cervical block) Discussion Discussed risks/options/alternatives of anesthesia and questions answered. Patient consents. Nursing pain assessment noted. Present: Family Member Attestation Statement Prior to the delivery of any anesthetic medication, I examined the patient, developed the plan, obtained the patient's consent and discussed the risk and benefits of the procedure with the patient/guardian. DERRICK STATON CRNA March 31, 2017 15:01
--- NOTE | 2017-03-31 15:05 | ANESPD ---
Peripheral Nerve Blockade Physician: Berto Connolly MD Date: 03/31/17 Surgical Procedure: ORIF right clavicle Discussion Discussed risks/options/alternatives of anesthesia and questions answered. Patient consents. Nursing pain assessment noted. Block Employed: Intrascalene, Other (superficial cervical block) Indication: post-operative pain Position: supine Patient: Consent, risks/benefits discussed, Informed, post block act. discussed Monitors: EKG, SpO2, NIBP IV Sedation: Yes Sedation: sedate w/meaningful contact Midazolam (mg): 2 Initial Vital Signs First Documented Vital Signs Date Time Temp Pulse Resp B/P Pulse Ox O2 Delivery O2 Flow Rate FiO2 03/31/17 09:10 98.5 78 16 165/97 92 Room Air Post Vital Signs Vital Signs Date Time Temp Pulse Resp B/P Pulse Ox O2 Delivery O2 Flow Rate FiO2 03/31/17 14:00 82 14 141/61 91 Room Air 03/31/17 09:10 98.5 Initial Pain Score: 8 Post Block Score: 2 Prep: chlorhexadine/ETOH Ultrasound Used?: Yes Injectate Bupivacaine (%): 0.25 Bupivacaine (mL): 30 Was Epi 1:200,000 Used?: No Injection 5Injection made incrementally with constant monitoring and aspiration every [3] ml. DERRICK STATON CRNA March 31, 2017 15:05
[2017-03-31] MEDS ORDERED: EPHEDRINE SULFATE 50mg/ml INJECTION ONE (15:14)
[2017-03-31] MEDS ORDERED: HYDR-347 PO (16:28)
--- NOTE | 2017-03-31 17:39 | ANESPO ---
Post-Op Note Date 03/31/17 Time: 17:38 Status Pt Participated in Evaluation: Pt participated in person Vital Signs Date Time Temp Pulse Resp B/P Pulse Ox O2 Delivery O2 Flow Rate FiO2 03/31/17 17:25 85 18 135/75 91 Room Air 03/31/17 17:08 98.9 03/31/17 16:35 6.00 Respiratory Function: Airway patent, Regular respirations Cardiovascular Function: Regular pulse Mental Status: Alert/oriented Pain Level Intensity: 0 Unable to Assess Pain Due To: Medicated/Sleeping Hydration: Taking po fluids Complications during Recovery None apparent Follow-Up Instructions Instructions Per Surgeon DERRICK STATON CRNA March 31, 2017 17:39
[2017-04-01] MEDS ORDERED: LR 1,000 ML IV SCH (07:01)
[2017-04-01] MEDS ORDERED: LIDOCAINE 1% (10mg/ml) 2ml SDV INJ ONE (07:15)
--- NOTE | 2017-04-01 08:29 | DI ---
Indication: ITS.REASON: RT CLAVICLE ORIF PROCEDURE: RF CLAVICLE RIGHT: Encounter: Initial Comparison: Right clavicle radiographs dated March 29, 2017 Findings: Four fluoroscopic spot images are submitted for interpretation. Images show open reduction and internal fixation of the right clavicular fracture with placement of a fixation plate and multiple screws with improved alignment of the fracture fragments. Impression: Fluoroscopy as above. Fluoroscopy time is 13.6 seconds. Fluoroscopy dose is 383.4 mRad. .
--- NOTE | 2017-04-01 09:14 | OPNOTEF ---
DATE OF SURGERY 03/31/2017 PREOPERATIVE DIAGNOSIS Closed comminuted displaced right midshaft clavicle fracture. POSTOPERATIVE DIAGNOSIS Closed comminuted displaced right midshaft clavicle fracture. PROCEDURE Open reduction internal fixation right clavicle. SURGEON Berto Connolly MD RESEARCH ASSOCIATE PROFESSOR Lior Jackson PA-C ANESTHESIA General with regional block FLUIDS Please refer to Anesthesia chart. EBL Less than 50. COMPLICATIONS None. CONDITION Stable to recovery room IMPLANTS Cassandra 8-hole clavicle plate with central bridge with associated locking and cortical screws. DESCRIPTION OF PROCEDURE The patient was identified in the preoperative holding area. The operative extremity was identified and appropriately marked. Risks, benefits, alternatives and potential complications were discussed and informed consent was obtained. The patient was taken to the operating theatre, placed supine on the operating table. Regional block had been placed in preop holding by Anesthesia. Appropriate cardiorespiratory monitors were applied. General anesthesia was administered. The patient was positioned in a 45 degree elevated head position. The head and neck were secured in a safe position on anesthesia rings. Fluoroscopy was brought in to assure adequate views were able to be obtained of the clavicle. The right upper extremity was then sterilely prepped and draped in the usual fashion extending from the sternum laterally. Surgical time-out was performed, confirmed with myself, the milieu coordinator and circulating nurse. Preoperative antibiotics had been given. The patient was a very muscular and large man; it was difficult to palpate bony structures given his size as well as his swelling from his clavicle fracture. We were able to delineate the medial aspect of the clavicle as well as laterally at the acromion. A longitudinal incision was then created along the anterior aspect of the clavicle. Electrocautery was used for hemostasis as necessary as dissection carried down through the subcutaneous flap. The patient had a quite thickened muscular layer and the fascia was then able to be identified. Given the displacement, we had to go through some of the muscle, but stayed superior, retracting the soft tissues posteriorly. Once we reached the anterior aspect of the clavicle, the fracture site was identified. The medial fracture fragment was elevated first. We then encountered an anterior butterfly fragment with soft tissue still attached. Lying deep and posterior to this, we then identified the lateral fragment. Soft tissue was cleared from the superior aspect of the lateral fragment at this time as well. The orientation of the fracture was a bit unusual. The lateral fragment had a long posterior spike that was able to be keyed into the medial fragment. This left a gap anteriorly where the butterfly fragment would fit. Initially, we placed two [id number] reduction tenac[place] along the posterior spike of the lateral fragment provisionally fixing it to the medial fragment. Visualizing grossly showed overall good alignment. It was elected to proceed with interfragmentary fixation of this fracture line. This was performed in standard AO technique. We then carefully maneuvered the butterfly fragment into its position and again confirmed this under direct visualization. A small area was cleared anteriorly of soft tissue and again interfragmentary lag technique was utilized to secure this fragment to the lateral fragment. At this time, x-ray showed an essentially anatomically reduced fracture with interfragmentary fixation. We then searched through the Jorden plates to try to find an appropriate plate. We initially thought about using a lateral cluster plate, however, the size from the 5- to the 7-hole was simply too big and was unnecessary for the fixation required medially. However the five hole did not reach far enough medially. We therefore elected for an 8-hole plate that had a bridge section centrally which we would bridge over the comminution. The plate was contoured with plate bending irons and then placed on the superior aspect of the clavicle. A lateral cortical screw was placed first, securing the plate down to the bone. Following this, a second cortical screw was placed in the central hole on the medial aspect of the plate again nicely compressing the plate down to bone. We then placed two screws laterally. We again tried to use cortical screws, however could not get as good of a bite so we opted to remove these and placed two locking screws laterally. Medially we were able to obtain good cortical purchase with cortical screws in the remaining far medial two holes. X-ray was then brought in and tangential views were obtained showing well fixed, well reduced midshaft clavicle fracture. The wound was copiously irrigated. Note should be made that prior to fixation, fibrous tissue and any clot were resected from the fracture lines and periosteum elevated as necessary. Again the wound was copiously irrigated. The deep fascial layer was closed with interrupted #1 Vicryl sutures and a running 0 Vicryl suture. This was followed by a standard layered skin closure with 2-0 Vicryl for the subcutaneous tissue and a running 4-0 Quill followed by Dermabond, Telfa and Tegaderm. The arm was then placed in a sling. The patient was then returned to the supine position. He was subsequently extubated and taken to the recovery room in stable and satisfactory condition. CHELSY
== END 2017-03-31 17:55 | disposition home or self-care (01) ==
LOC: NSC 08:47
PROVIDERS: ATTEND Orthopaedic Surgery
DX: S42.021A Displaced fracture of shaft of right clavicle, initial encounter for closed fracture (principal); V86.59XA Driver of other special all-terrain or other off-road motor vehicle injured in nontraffic accident, initial encounter; Y93.89 Activity, other specified; Y92.008 Other place in unspecified non-institutional (private) residence as the place of occurrence of the external cause; Y99.8 Other external cause status
CPT/HCPCS: 23515; 36415; 64415; 73000; 76000; 76942; 80053; 85025; C1713; J2250; J2370; J2704; J3370; J7050; J7120; S0020; 93005